=== PATIENT | female | born 1965 | race Caucasian/White ===

== ENCOUNTER → 2016-11-28 09:53 | Outpatient (CLI) | payer BC ==
[2015-12-14 11:58] VITALS: BMI 47.3
[~2016-11-28 09:53] MED LIST: BAYER CHEWABLE81 MG PO; COZAAR50 MG PO; DYAZIDE 37.5/251 CAP PO; K-DUR20 MEQ PO; TENORMIN50 MG PO
== END | disposition home or self-care (01) ==
LOC: D.US 11-26 14:00
DX: R10.2 Pelvic and perineal pain (principal); N93.8 Other specified abnormal uterine and vaginal bleeding

== ENCOUNTER → 2018-08-28 20:02 | Outpatient (CLI) | payer OTHER ==
[2015-12-14 11:58] VITALS: BMI 47.3
== END | disposition home or self-care (01) ==
LOC: D.MAMMO 11:15
DX: Z12.31 Encounter for screening mammogram for malignant neoplasm of breast (principal)